=== PATIENT | female | born 1990 | race Caucasian/White ===

== ENCOUNTER 2018-09-17 04:20 | Inpatient (IN) | payer BC ==
[2018-09-17] MEDS ORDERED: CARBOPROST TROMETHAMINE 250 MCG/ML 1 ML AMP IM PRN (04:52)
[2018-09-17] MEDS ORDERED: OXYTOCIN 10 UNIT/ML 1 ML VIAL IM PRN (04:52)
[2018-09-17] MEDS ORDERED: TERBUTALINE 1 MG/ML VIAL SQ PRN (04:52)
[2018-09-17] MEDS ORDERED: LIDOCAINE 0.5% (PF) 5 MG/ML (50 ML SDV) SQ PRN (04:52)
[2018-09-17] MEDS ORDERED: METHYLERGONOVINE 0.2 MG/ML 1 ML AMP IM PRN (04:52)
[2018-09-17] MEDS ORDERED: AMPICILLIN 2,000 MG in SODIUM CHLORIDE 0.9% 100 ML IVPB STA (04:52)
[2018-09-17] MEDS ORDERED: OXYTOCIN 30 UNITS/500 ML NS 30 UNIT in SALINE 1 500ML.BAG IV SCH (05:00)
[2018-09-17 05:20] VITALS: BMI 38.6
[2018-09-17] MEDS: LACTATED RINGERS 1,000 ML IV SCH ×2 (05:21→07:48)
[2018-09-17 05:31] LABS: Basophils % (A) 0 %; Eosinophils # (A) 0.3 k/uL (0-0.7); Eosinophils % (A) 3 %; HGB 12.6 gm/dL (11.4-16.0); Lymphocytes # (A) 2.1 k/uL (1.0-4.8); Lymphocytes % (A) 19 %; MCH 27.5 pg (25.0-35.0); MCHC 33.2 g/dL (31.0-37.0); Mean Platelet Volume 8.2; Monocytes # (A) 0.6 k/uL (0-1.0); Monocytes % (A) 5 %; Neutrophils # (A) 7.8 k/uL (1.3-7.7); Neutrophils % (A) 70 %; Platelet Count 315 k/uL (150-450); RBC 4.58 m/uL (3.80-5.40); WBC 11.2 k/uL (3.8-10.6)
--- NOTE | 2018-09-17 06:28 | P.MSEPDOC ---
Presenting Problems - Arrival Data Date of Arrival on Unit: 09/17/18 Time of Arrival on Unit: 04:22 Mode of Transport: Wheelchair - Complaint OB-Reason for Admission/Chief Complaint: Possible Onset of Labor, Rule Out SROM Comment: Patient states her water broke around 0330 for clear fluid and states that she has been kait every 4 minutes since that happened Medical History - Information : 1 Para: 0 Term: 0 : 0 Abortions: Spontaneous or Elective: 0 Number of Living Children: 0 - Gestational Age Gestational Age by RIAN (wks/days): 36 Weeks and 3 Days Review of Systems - Review of Systems Constitutional: No problems Breast: No problems ENT: No problems Cardiovascular: No problems Respiratory: No problems Gastrointestinal: No problems Genitourinary: No problems Musculoskeletal: No problems Neurological: No problems Skin: No problems Vital Signs - Temperature Temperature: 97.2 F Temperature Source: Temporal Artery Scan - Pulse Pulse Oximetery Pulse Rate: 98 Pulse Assessment Method: Pulse Oximetry - Respirations Respiratory Rate: 16 Oxygen Delivery Method: Room Air - Blood Pressure Sitting Blood Pressure: 129/73 Blood Pressure Mean: 91 Blood Pressure Source: Automatic Cuff Medical Screen Scoring (Pre) - Cervical Exam Dilation: 1-3 cm = 1 Effacement: More than 50% = 2 Membranes: Ruptured = 3 - Uterine Contractions Frequency: < 36 weeks = 6 Duration: > 40 seconds = 2 Intensity: N/A - Maternal Vital Signs Maternal Temperature: N/A Maternal Blood Pressure: N/A Signs of Preeclampsia: N/A Maternal Respirations: N/A - Pain Assessment Pain Location and Character: Abdomen Pain Scale Used: Numeric (1 - 10) Pain Intensity: 6 Pain Management Goal: 6 Pain Frequency: Intermittent - Maternal Trauma Maternal Trauma: N/A - Assessment Baseline FHR: 145 Heart Rate - NICHD Category: Category I (Normal) = 0 NST: Reactive Position: N/A Station: N/A - Total Score Total Score (Pre): 14 - Level of Risk Level of Risk: High (10+) Physician Notification (Pre) - Physician Notified Physician Notified Date: 09/17/18 Physician Notified Time: 04:52 Physician/Practitioner Notifed:: Dr. Feliz New Order Received: Yes - Notification Comment Comment: Orders given to admit patient for labor, initiate iv antibiotic due to patient being . 2gm ampicillin ivpb now and then 1gm ampicillin ivpb every 4 hours. Physician coming in. Disposition - Disposition OB Disposition: Admit, LDRP Suite Transferred to:: Suite 7 I agree with the RN Medical Screening Exam: Yes Risk & Benefit of care provided described in d/c instruction: Yes Diagnosis: LABOR THIRD TRI W DELIVERY THIRD TRI, UNSP
--- NOTE | 2018-09-17 06:43 | P.HPOB ---
History of Present Illness H&P Date: 09/17/18 Chief Complaint: Leaking fluid. This patient is a pleasant 27-year-old 1 para 0 female estimated date of confinement 10/12/2013 estimated gestational age 36-3/7 weeks who had a gush of fluid at approximately 3:30 this morning. Patient thereafter began having painful contractions. care has been uncomplicated. She was noted to have approximately 1 cm condyloma on her right vulvar area on her initial presentation which has not changed significantly throughout the . Review of Systems Genitourinary: Reports Menstruation: Reports amenorrhea Past Medical History Past Medical History: No Reported History History of Any Multi-Drug Resistant Organisms: None Reported Additional Past Surgical History / Comment(s): Cyst removed from neck at 2 years old Past Anesthesia/Blood Transfusion Reactions: No Reported Reaction Past Psychological History: No Psychological Hx Reported Smoking Status: Never smoker Past Alcohol Use History: None Reported Past Drug Use History: None Reported - Past Family History Sister(s) Family Medical History: Thyroid Disorder Medications and Allergies Home Medications Medication Instructions Recorded Confirmed Type No Known Home Medications 09/17/18 09/17/18 History Allergies Allergy/AdvReac Type Severity Reaction Status Date / Time No Known Allergies Allergy Verified 09/17/18 04:32 Exam Vital Signs Temp Pulse Resp BP 09/17/18 06:28 97.2 F L 98 16 129/73 09/17/18 04:52 97.2 F L 98 16 129/73 09/17/18 04:35 97.2 F L 98 16 129/73 Intake and Output 09/16/18 09/16/18 09/17/18 14:59 22:59 06:59 Other: # Voids 1 Weight 102.058 kg - OBG Physical Exam Abdomen: bowel sounds normal, no diffuse tenderness, no bruit present, no guarding noted, no hepatomegaly, no splenomegaly, no mass Vulva: left: normal (Approximately 1 cm flat condyloma on the right) Vagina: Patient has gross rupture membranes for clear fluid Vagina: no discharge Cervix: no lesion (Cervix is fingertip and 80% effaced.), no discharge Uterus: enlarged (Fundal height is 37 cm) Results blood work shows she is O positive, rubella nonimmune, RPR is nonreactive, HIV is nonreactive, hepatitis B is negative, Glucola was abnormal but she had a normal three-hour gtt., group B strep was negative, ultrasound done approximately 5 days ago shows estimated weight at 5 lbs. 14 oz. Result Diagrams: 09/17/18 05:15 Abnormal Lab Results - Last 24 Hours (Table) 09/17/18 Range/Units 05:15 WBC 11.2 H (3.8-10.6) k/uL Neutrophils # 7.8 H (1.3-7.7) k/uL Assessment and Plan Assessment: This is a pleasant 27-year-old 1 para 0 female 36-3/7 weeks gestation with premature rupture membranes and thereafter early onset of labor. Patient does have a negative group B strep but secondary to prematurity I'm going to start prophylactic antibiotics. Patient is having contractions but I will augment as necessary. This point we anticipate vaginal delivery. I discussed with the patient and her the treatment plan and they understand the possibility of the infant going to special care. Dr. Benitez we will take over care after this morning. I have also discussed with the patient possible removal of her isolated condyloma to be sent to pathology. (1) 36 to 37 weeks gestation of Current Visit: Yes Status: Acute Code(s): AMX4631 - SNOMED Code(s): 798779836 (2) Premature rupture of membranes Current Visit: Yes Status: Acute Code(s): O42.90 - JONG ROM, 7TH0 BETW RUPT & ONST LABR, UNSP WEEKS OF GEST SNOMED Code(s): 33409390
[2018-09-17] MEDS ORDERED: BUTORPHANOL 1 MG/ML 1 ML VIAL IV PRN (06:51)
[2018-09-17] MEDS ORDERED: fentaNYL (PF) 50 MCG/ML 5 ML AMP ONE (07:29)
[2018-09-17] MEDS ORDERED: ROPIVACAINE 5MG/ML 20ML VIAL ONE (07:29)
[2018-09-17] MEDS ORDERED: SODIUM CHLORIDE 0.9% 100 ML BAG ONE (07:29)
[2018-09-17] MEDS ORDERED: WITCH HAZEL 1 EACH MED..PAD TOPICAL PRN (12:53)
[2018-09-17] MEDS ORDERED: diphenhydrAMINE 25 MG CAP PO PRN (12:53)
[2018-09-17] MEDS ORDERED: ACETAMINOPHEN TAB 325 MG TAB PO PRN (12:53)
[2018-09-17] MEDS ORDERED: BENZOCAINE/MENTHOL SPRAY 1 GM/SPRAY AEROSOL TOPICAL PRN (12:53)
[2018-09-17] MEDS ORDERED: diphenhydrAMINE 50 MG/ML 1 ML VIAL IVP PRN (12:53)
[2018-09-17] MEDS ORDERED: LANOLIN CREAM 5 GM TUBE TOPICAL PRN (12:53)
[2018-09-17] MEDS ORDERED: SIMETHICONE 80 MG CHEWABLE PO PRN (12:53)
[2018-09-17] MEDS ORDERED: ZOLPIDEM 5 MG TAB PO PRN (12:53)
[2018-09-17] MEDS ORDERED: HYDROCORTISONE 2.5% RECTAL CREAM 30 GM TUBE RECTAL PRN (12:53)
[2018-09-17] MEDS ORDERED: BISACODYL 10 MG SUPP RECTAL PRN (12:53)
[2018-09-17] MEDS ORDERED: OXYTOCIN 20 UNITS/1000 ML NS 1,000 ML IV SCH (12:53)
[2018-09-17] MEDS: IBUPROFEN 600 MG TAB PO PRN (13:08)
--- NOTE | 2018-09-17 13:34 | P.PROBDLV ---
Vaginal Delivery Note - . Vaginal Delivery Note: The patient progressed to complete dilation after epidural anesthesia. Once reaching complete dilation, she began pushing. The taken to a crown. With one further push, the 's head delivered across the perineum and a right occiput anterior lie followed immediately by the shoulders and the body. was placed on mother's abdomen and nose and mouth were bulb suctioned. Cord was clamped and cut. Cord blood was obtained secondary to O+ blood type. A viable female was noted with scores of 8 at 1 minute and 9 at 5 minutes and infant weight of 5 lbs. 9 oz. Placenta delivered shortly thereafter, intact, with a three-vessel cord. Uterus contracted fairly well after oxytocin was given and uterine massage was carried out. Inspection of the perineum revealed a right vaginal first degree laceration. This area was anesthetized with 1% lidocaine and then sutured with 3-0 Vicryl suture in a running locked fashion. There was noted to be a condyloma appearing lesion at approximately 7:00 on the introitus that was approximately dime-sized. This was previously noted by Dr. Feliz. This area was anesthetized and then removed with an elliptical incision with a 10 blade scalpel. This was sent to pathology. The area was then sutured with 3-0 Vicryl suture in a running locked fashion. Good hemostasis was noted. Estimated blood loss is approximately 150 mL's. Both mother and are in stable condition.
[2018-09-17] MEDS: SENNOSIDES-DOCUSATE SODIUM 1 EACH TAB PO SCH ×2 (14:18→20:27)
[2018-09-17] MEDS: AMPICILLIN 1,000 MG in SODIUM CHLORIDE 0.9% 50 ML IVPB SCH (14:40)
[2018-09-17] MEDS ORDERED: MEASLES-MUMPS-RUBELLA VACC/PF 12,500 UNIT/0.5 ML VIAL SQ ONE (22:01)
[2018-09-17] MEDS ORDERED: DIPH,PERTUS(ACELL)TETVAC-LF 0.5 ML VIAL IM ONE (22:01)
[2018-09-18] MEDS: IBUPROFEN 600 MG TAB PO PRN ×2 (03:03→08:33)
--- NOTE | 2018-09-18 06:30 | P.PNOBGVD ---
Subjective - Subjective Patient reports: Reports appetite normal, Reports voiding normally, Reports pain well controlled, Reports ambulating normally : doing well Objective - Latest Vital Signs Latest vital signs: Vital Signs Temp Pulse Pulse Resp BP 09/18/18 00:00 98.3 F 81 16 122/67 09/17/18 20:00 98.0 F 84 16 132/84 09/17/18 16:00 97.3 F L 97 16 126/73 09/17/18 14:33 97.3 F L 99 16 112/67 09/17/18 14:03 100 16 120/75 09/17/18 13:33 104 H 16 115/65 09/17/18 13:18 90 16 115/68 09/17/18 13:03 93 16 117/78 09/17/18 12:48 93 16 125/58 09/17/18 12:33 101 H 16 118/76 Intake and Output 09/17/18 09/17/18 09/18/18 14:59 22:59 06:59 Intake Total 3499.5 Balance 3499.5 Intake: Intake, IV Titration 3499.5 Amount Lactated Ringers 1,000 ml 3000 @ 125 mls/hr IV .Q8H WAYNE Rx#:[id number] Oxytocin 20 Units/1000 ml 499.5 Ns 1,000 ml @ Per Protocol IV .Q0M WAYNE Rx#: [id number] Other: # Voids 1 1 - Exam Lungs: bilateral: normal Chest: Normal S1, Normal S2 Extremities: Present: normal Abdomen: Present: normal appearance, soft Uterus: Present: normal, firm Assessment and Plan Assessment: day #1. Patient is resting without complaints wishes to go home. Vital signs are stable she is afebrile. Uterus is firm nontender and she is having normal lochia. My impression this is a normal post course. Plan is to continue routine care discharge home later today. (1) 36 to 37 weeks gestation of Current Visit: Yes Status: Acute Code(s): DCI4827 - SNOMED Code(s): 241922536 (2) Premature rupture of membranes Current Visit: Yes Status: Acute Code(s): O42.90 - JONG ROM, 7TH0 BETW RUPT & ONST LABR, UNSP WEEKS OF GEST SNOMED Code(s): 35188905
--- NOTE | 2018-09-18 06:33 | P.DS ---
Providers Date of admission: 09/17/18 04:49 Expected date of discharge: 09/18/18 Attending physician: Charli Feliz Primary care physician: Charli Feliz - Discharge Diagnosis(es) (1) 36 to 37 weeks gestation of Current Visit: Yes Status: Acute (2) Premature rupture of membranes Current Visit: Yes Status: Acute Hospital Course: Please see dictated H&P for intimate details of this patient's admission. Brief summary this is a pleasant 27-year-old 1 para 0 female 36-3/7 weeks gestation admitted to labor and delivery with spontaneous rupture membranes. She quickly goes on to have a vaginal delivery viable female infant. Please see dictated delivery note. day 1 patient is requesting to go home felt be stable for discharge home follow up with me in 6 weeks. Procedures: Normal spontaneous vaginal delivery Patient Condition at Discharge: Good Plan - Discharge Summary Discharge Rx Participant: No New Discharge Prescriptions: New Ibuprofen [Motrin] 600 mg PO Q6HR PRN #40 tab PRN Reason: Mild Pain Or Fever >= 100.5 Discharge Medication List Ibuprofen [Motrin] 600 mg PO Q6HR PRN #40 tab 09/18/18 [Rx] Follow up Appointment(s)/Referral(s): Charli Feliz MD [Primary Care Provider] - 10/30/18 11:30 am Patient Instructions/Handouts: Vaginal Delivery (DC) Activity/Diet/Wound Care/Special Instructions: No intercourse or anything per vagina for 6 weeks. Please call if any fever, chills, excessive vaginal bleeding, and/or abdominal pain. Discharge Disposition: HOME SELF-CARE
[2018-09-18 08:57] VITALS: RESP 18
[2018-09-18] MEDS: SENNOSIDES-DOCUSATE SODIUM 1 EACH TAB PO SCH (11:25)
[2018-09-18 18:36] VITALS: BP 128/76; PULSE 89; TEMP 98.3
== END 2018-09-18 18:00 | disposition home or self-care (01) | DRG 768 ==
LOC: FBPOP 04:20 → 4FBP 04:49
PROVIDERS: ADMIT Obstetrics & Gynecology; ATTEND Obstetrics & Gynecology
PROC: 10E0XZZ Delivery of Products of Conception, External Approach (ICD-10-PCS; principal; 2018-09-17)
PROC: 0UBGXZZ Excision of Vagina, External Approach (ICD-10-PCS; 2018-09-17)
PROC: 0HQ9XZZ Repair Perineum Skin, External Approach (ICD-10-PCS; 2018-09-17)
PROC: 00HU33Z Insertion of Infusion Device into Spinal Canal, Percutaneous Approach (ICD-10-PCS; 2018-09-17)
PROC: 3E0R3BZ Introduction of Anesthetic Agent into Spinal Canal, Percutaneous Approach (ICD-10-PCS; 2018-09-17)
DX: O42.013 Preterm premature rupture of membranes, onset of labor within 24 hours of rupture, third trimester (principal); O98.32 Other infections with a predominantly sexual mode of transmission complicating childbirth; O70.0 First degree perineal laceration during delivery; A63.0 Anogenital (venereal) warts; Z37.0 Single live birth; Z3A.36 36 weeks gestation of pregnancy
CPT/HCPCS: 59025; 84112; 85025; 86850; 86900; 86901; 88305; 88307; 90471; 90472; 90707; 90715; 99213

== ENCOUNTER 2020-06-18 02:57 | Inpatient (IN) | payer BC ==
[2020-06-18] MEDS ORDERED: CARBOPROST TROMETHAMINE 250 MCG/ML 1 ML AMP IM PRN (03:28)
[2020-06-18] MEDS ORDERED: LIDOCAINE 0.5% (PF) 5 MG/ML (50 ML SDV) SQ PRN (03:28)
[2020-06-18] MEDS ORDERED: TERBUTALINE 1 MG/ML VIAL SQ PRN (03:28)
[2020-06-18] MEDS ORDERED: OXYTOCIN 10 UNIT/ML 1 ML VIAL IM PRN (03:28)
[2020-06-18] MEDS ORDERED: METHYLERGONOVINE 0.2 MG/ML 1 ML AMP IM PRN (03:28)
[2020-06-18] MEDS ORDERED: LACTATED RINGERS 1,000 ML IV SCH (03:30)
[2020-06-18] MEDS: BUTORPHANOL 1 MG/ML 1 ML VIAL IV PRN ×2 (04:00→05:48)
[2020-06-18 04:16] LABS: Basophils % (A) 0 %; Eosinophils # (A) 0.2 k/uL (0-0.7); Eosinophils % (A) 2 %; HCT 35.7 % (34.0-46.0); HGB 12.1 gm/dL (11.4-16.0); Lymphocytes # (A) 2.4 k/uL (1.0-4.8); Lymphocytes % (A) 24 %; MCH 27.2 pg (25.0-35.0); MCV 80.1 fL (80.0-100.0); Mean Platelet Volume 8.8; Monocytes # (A) 0.6 k/uL (0-1.0); Monocytes % (A) 6 %; Neutrophils # (A) 6.6 k/uL (1.3-7.7); Neutrophils % (A) 66 %; Platelet Count 282 k/uL (150-450); RBC 4.46 m/uL (3.80-5.40); WBC 10.1 k/uL (3.8-10.6)
[2020-06-18 04:53] VITALS: RESP 18
--- NOTE | 2020-06-18 05:51 | P.HPOB ---
History of Present Illness H&P Date: 06/18/20 Chief Complaint: Leaking of fluid This patient is a pleasant 29-year-old 2 para 1 female estimated date of confinement 06/30/2020 estimated gestational age 38-2/7 weeks who presents to labor and delivery with complaints of gush of fluid at about 2 this morning and contractions thereafter. Patient's care has been uncomplicated. Review of Systems Genitourinary: Reports Menstruation: Reports amenorrhea Past Medical History Past Medical History: No Reported History Additional Past Medical History / Comment(s): Patient is a previous 36 week vaginal delivery due to PROM History of Any Multi-Drug Resistant Organisms: None Reported Additional Past Surgical History / Comment(s): Cyst removed from neck at 2 years old Past Anesthesia/Blood Transfusion Reactions: No Reported Reaction Past Psychological History: No Psychological Hx Reported Smoking Status: Never smoker Past Alcohol Use History: None Reported Past Drug Use History: None Reported - Past Family History Sister(s) Family Medical History: Thyroid Disorder Mother Family Medical History: No Reported History Father Family Medical History: No Reported History Medications and Allergies Home Medications Medication Instructions Recorded Confirmed Type Pnv,Calcium 72/Iron/Folic Acid 1 tab PO DAILY 06/18/20 06/18/20 History [ Plus Tablet] Allergies Allergy/AdvReac Type Severity Reaction Status Date / Time No Known Allergies Allergy Verified 06/18/20 03:28 Exam Vital Signs Temp Pulse Resp BP Pulse Ox 06/18/20 04:42 97.3 F L 90 18 132/68 95 Intake and Output 06/17/20 06/17/20 06/18/20 14:59 22:59 06:59 Other: Weight 111.13 kg - OBG Physical Exam Abdomen: bowel sounds normal, no diffuse tenderness, no bruit present, no guarding noted, no hepatomegaly, no splenomegaly, no mass Vulva: both: normal Cervix: no lesion (Cervix is 4 cm 80% effaced -2 station), no discharge Uterus: enlarged Results blood work shows she is O positive, rubella immune, RPR nonreactive, hepatitis B negative, group B strep was negative, Glucola was normal, ultrasounds done approximately 3 weeks ago showed 6 lbs. 3 oz. Result Diagrams: 06/18/20 03:55 Assessment and Plan Assessment: This is a pleasant 29-year-old 2 para 1 female 38-2/7 weeks gestation admitted to labor and delivery with spontaneous rupture membranes and active labor. Plan is anticipate vaginal delivery. (1) 38 weeks gestation of Current Visit: Yes Status: Acute Code(s): Z3A.38 - 38 WEEKS GESTATION OF SNOMED Code(s): 84238380 (2) Spontaneous rupture of amniotic membranes Current Visit: Yes Status: Acute Code(s): CJJ7943 - SNOMED Code(s): 209937038
[2020-06-18] MEDS ORDERED: ROPIVACAINE 100 MG, fentaNYL (PF) 200 MCG in SODIUM CHLORIDE 0.9% 76 ML EPIDURAL ONE (06:45)
[2020-06-18] MEDS ORDERED: OXYTOCIN 30 UNITS/500 ML NS 30 UNIT in SALINE 1 500ML.BAG IV SCH ×2 (07:00→09:45)
[2020-06-18] MEDS ORDERED: HYDROCORTISONE 2.5% RECTAL CREAM 30 GM TUBE RECTAL PRN (09:34)
[2020-06-18] MEDS ORDERED: BENZOCAINE/MENTHOL SPRAY 1 GM/SPRAY AEROSOL TOPICAL PRN (09:34)
[2020-06-18] MEDS ORDERED: diphenhydrAMINE 25 MG CAP PO PRN (09:34)
[2020-06-18] MEDS ORDERED: LANOLIN CREAM 5 GM TUBE TOPICAL PRN (09:34)
[2020-06-18] MEDS ORDERED: bisacodyL 10 MG SUPP RECTAL PRN (09:34)
[2020-06-18] MEDS ORDERED: ACETAMINOPHEN TAB 325 MG TAB PO PRN (09:34)
[2020-06-18] MEDS ORDERED: ZOLPIDEM 5 MG TAB PO PRN (09:34)
[2020-06-18] MEDS ORDERED: diphenhydrAMINE 50 MG/ML 1 ML VIAL IVP PRN (09:34)
[2020-06-18] MEDS ORDERED: SIMETHICONE 80 MG CHEWABLE PO PRN (09:34)
--- NOTE | 2020-06-18 09:41 | P.PROBDLV ---
Vaginal Delivery Note - . Vaginal Delivery Note: Normal spontaneous vaginal delivery viable female Apgars 8 and 9 delivery time is 0918 hrs. Please see dictated H&P for intimate details of this patient's admission. Brief summary this is a pleasant 29-year-old 2 para 1 female estimated date of confinement 06/30/2020 estimated gestational age 38-2/7 weeks who presents to labor and delivery with complaints of gush of fluid at 2:00 this morning and onset of contractions thereafter. On admission patient is 3 cm dilated and does receive several doses of Stadol and then an epidural for pain control. Patient quickly progresses thereafter pushes the head to the perineum. Posterior perineum is supported we have controlled delivery of the infant's head over the intact perineum. 's position is straight occiput anterior presentation. Mouth and nares are bulb suctioned. There is no evidence of a nuchal cord. With gentle downward traction we then have deliver the anterior and posterior shoulder and rest this infant's body. This is a vigorous viable female Apgars are 8 and 9 delivery time is 0918 hrs. has spontaneous respirations and good cry and grossly appears normal. After delivery of the the umbilical cord is immediately doubly clamped and cut due to a history of jaundice with her first baby. The umbilical cord appears to be trivascular. The infant is late on the mother's abdomen. Placenta is then spontaneously delivered intact. Estimated blood loss is approximately 150 mL's. Inspection of the perineum shows a small first-degree laceration repaired with [id number] 3-0 Vicryl suture. Excellent reapproximation is noted. All counts correct 3. No complications. Infant and mother stable delivery room.
[2020-06-18] MEDS: IBUPROFEN 600 MG TAB PO PRN ×3 (09:44→23:28)
[2020-06-18] MEDS: SENNOSIDES-DOCUSATE SODIUM 1 EACH TAB PO SCH (20:00)
[2020-06-19 01:36] VITALS: BP 114/73; PULSE 79; TEMP 98.5
[2020-06-19] MEDS: IBUPROFEN 600 MG TAB PO PRN (05:19)
--- NOTE | 2020-06-19 07:32 | P.PNOBGVD ---
Subjective - Subjective Patient reports: Reports appetite normal, Reports voiding normally, Reports pain well controlled, Reports ambulating normally : doing well Objective - Latest Vital Signs Latest vital signs: Vital Signs Temp Pulse Resp BP Pulse Ox 06/18/20 23:30 98.5 F 79 18 114/73 96 06/18/20 20:00 98.4 F 97 18 130/78 97 06/18/20 16:00 98.4 F 79 18 121/70 06/18/20 11:30 97.4 F L 81 18 124/62 06/18/20 11:00 97.5 F L 91 18 123/58 06/18/20 10:30 98.2 F 84 18 118/58 06/18/20 10:15 98.9 F 80 18 114/58 06/18/20 10:00 85 107/50 06/18/20 09:45 98.2 F 84 18 104/68 06/18/20 09:30 98.1 F 94 18 126/65 Intake and Output 06/18/20 06/19/20 06/19/20 22:59 06:59 14:59 Other: # Voids 2 1 - Exam Lungs: bilateral: normal Chest: Normal S1, Normal S2 Extremities: Present: normal Abdomen: Present: normal appearance, soft Uterus: Present: normal, firm Assessment and Plan Assessment: Post day #1. Patient is resting without complaints and wishes to go home. Vital signs are stable she is afebrile. Uterus is firm nontender she's having normal lochia. My impression this is a normal course. Plan is to continue routine care discharge home later today. (1) 38 weeks gestation of Current Visit: Yes Status: Acute Code(s): Z3A.38 - 38 WEEKS GESTATION OF SNOMED Code(s): 89448973 (2) Spontaneous rupture of amniotic membranes Current Visit: Yes Status: Acute Code(s): RVD4866 - SNOMED Code(s): 769485831
--- NOTE | 2020-06-19 07:37 | P.DS ---
Providers Date of admission: 06/18/20 03:23 Expected date of discharge: 06/19/20 Attending physician: Charli Feliz Primary care physician: Stated None - Discharge Diagnosis(es) (1) 38 weeks gestation of Current Visit: Yes Status: Acute (2) Spontaneous rupture of amniotic membranes Current Visit: Yes Status: Acute Hospital Course: Please see dictated H&P for intimate details of this patient's admission. Brief summary is a pleasant 29-year-old 2 para 1 female 38-2/7 weeks gestation who is admitted to labor and delivery with spontaneous rupture membranes and labor. Patient quickly goes on to have a vaginal delivery viable female infant. The see dictated delivery note. day #1 patient wishes to go home. Patient's felt be stable for discharge home follow up with me in 6 weeks. Procedures: Normal spontaneous vaginal delivery Patient Condition at Discharge: Good Plan - Discharge Summary New Discharge Prescriptions: New Ibuprofen [Motrin] 600 mg PO Q6HR PRN #30 tab PRN Reason: Mild Pain Or Fever >= 100.5 No Action Pnv,Calcium 72/Iron/Folic Acid [ Plus Tablet] 1 tab PO DAILY Discharge Medication List Pnv,Calcium 72/Iron/Folic Acid [ Plus Tablet] 1 tab PO DAILY 06/18/20 [History] Ibuprofen [Motrin] 600 mg PO Q6HR PRN #30 tab 06/19/20 [Rx] Follow up Appointment(s)/Referral(s): Charli Feliz MD [STAFF PHYSICIAN] - 6 Weeks Patient Instructions/Handouts: Vaginal Delivery (DC) Activity/Diet/Wound Care/Special Instructions: Normal intercourse or anything per vagina for 6 weeks. Please call if any fever, chills, excessive vaginal bleeding, and/or abdominal pain. Discharge Disposition: HOME SELF-CARE
--- NOTE | 2020-06-19 08:36 | P.MSEPDOC ---
Presenting Problems - Arrival Data Date of Arrival on Unit: 06/18/20 Time of Arrival on Unit: 03:25 Mode of Transport: Ambulatory - Complaint OB-Reason for Admission/Chief Complaint: Possible Onset of Labor, Rule Out SROM Comment: SROM at 2am Medical History - Information : 2 Para: 1 Term: 0 : 1 Abortions: Spontaneous or Elective: 0 Number of Living Children: 1 - Gestational Age Gestational Age by RIAN (wks/days): 38 Weeks and 2 Days Review of Systems - Review of Systems Constitutional: No problems Breast: No problems ENT: No problems Cardiovascular: No problems Respiratory: No problems Gastrointestinal: No problems Genitourinary: No problems Musculoskeletal: No problems Neurological: No problems Skin: No problems Vital Signs - Temperature Temperature: 98.5 F Temperature Source: Temporal Artery Scan - Pulse Right Pulse Rate: 79 Pulse Assessment Method: Automatic Cuff - Respirations Respiratory Rate: 18 Oxygen Delivery Method: Room Air O2 Sat by Pulse Oximetry: 96 - Blood Pressure Right Arm Blood Pressure: 114/73 Blood Pressure Mean: 86 Blood Pressure Source: Automatic Cuff Medical Screen Scoring (Pre) - Cervical Exam Dilation: 1-3 cm = 1 Effacement: More than 50% = 2 Membranes: Ruptured = 3 - Uterine Contractions Frequency: > or = 36 weeks =2 Duration: > 40 seconds = 2 Intensity: Contraction palpated strong = 1 - Maternal Vital Signs Maternal Temperature: N/A Maternal Blood Pressure: N/A Signs of Preeclampsia: N/A Maternal Respirations: N/A - Maternal Trauma Maternal Trauma: N/A - Assessment - Baby A Baseline FHR: 135 Heart Rate - NICHD Category: Category I (Normal) = 0 NST: Reactive Position: N/A Station: N/A - Total Score - Baby A Total Score - Baby A: 11 - Total Score - Baby B Total Score - Baby B: 11 - Total Score - Baby C Total Score - Baby C: 11 - Level of Risk - Baby A Level of Risk - Baby A: High (10+) - Level of Risk - Baby B Level of Risk - Baby B: High (10+) - Level of Risk - Baby C Level of Risk - Baby C: High (10+) Physician Notification (Pre) - Physician Notified Physician Notified Date: 06/18/20 Physician Notified Time: 03:25 New Order Received: Yes - Notification Comment Comment: RN spoke with Dr. Feliz regarding pt status. SROM at 2am, clear fluid,. positive amnisure, contractions Q2-3min, cervix 360/-2. RN to admit patient, may give stadol PRN for pain. No epidural or pitocin at this time. Dr. Feliz will be coming in to see patient within the next few hours. Disposition - Disposition OB Disposition: Admit I agree with the RN Medical Screening Exam: Yes Case reviewed; plan agreed upon as documented in EMR&OBIX.: Yes Diagnosis: ENCOUNTER FOR FULL-TERM UNCOMPLICATED DELIVERY (Patient is admitted with spontaneous rupture membranes in active labor)
[2020-06-19] MEDS: SENNOSIDES-DOCUSATE SODIUM 1 EACH TAB PO SCH (09:06)
== END 2020-06-19 11:51 | disposition home or self-care (01) | DRG 807 ==
LOC: FBPOP 02:57 → 4FBP 03:23
PROVIDERS: ADMIT Obstetrics & Gynecology; ATTEND Obstetrics & Gynecology
PROC: 10E0XZZ Delivery of Products of Conception, External Approach (ICD-10-PCS; principal; 2020-06-18)
PROC: 0HQ9XZZ Repair Perineum Skin, External Approach (ICD-10-PCS; 2020-06-18)
PROC: 3E0R3BZ Introduction of Anesthetic Agent into Spinal Canal, Percutaneous Approach (ICD-10-PCS; 2020-06-18)
DX: O70.0 First degree perineal laceration during delivery (principal); Z37.0 Single live birth; Z3A.38 38 weeks gestation of pregnancy; Z79.899 Other long term (current) drug therapy; Z83.49 Family history of other endocrine, nutritional and metabolic diseases
CPT/HCPCS: 59025; 84112; 85025; 86850; 86900; 86901; 99213